=== PATIENT | male | born 1960 | race Caucasian/White ===

== ENCOUNTER → 2023-12-06 09:12 | Outpatient (REF) | payer BC, SELFPAY | LOC: RCS 09:12 | PROVIDERS: ATTENDING PHYSICIAN Internal Medicine Cardiovascular Disease; FAMILY PHYSICIAN Internal Medicine | DX: R00.2 Palpitations (principal) | CPT/HCPCS: 93306 ==

== ENCOUNTER → 2024-08-11 07:55 | Outpatient (REF) | payer BC, SELFPAY | LOC: HWRCS 07:55 | PROVIDERS: ATTENDING PHYSICIAN Internal Medicine Cardiovascular Disease; FAMILY PHYSICIAN Internal Medicine | DX: I77.810 Thoracic aortic ectasia (principal) | CPT/HCPCS: 93306 ==

== ENCOUNTER 2025-01-16 18:39 | Inpatient (IN) | payer BC, MEDICARE, SELFPAY ==
[2025-01-16 12:25] VITALS: BP 137/82
--- NOTE | 2025-01-16 13:05 | ED.GENMED ---
History of Present Illness
General
Chief Complaint: Abnormal Lab Value
Time Seen by Provider: 01/16/25 12:45
History of Present Illness
History of Present Illness:
65-year-old male presents to the emergency department for evaluation of abnormal blood work. Had noted several days of dark urine and katelynn colored stools, earlier in the week he saw his primary care physician and had outpatient labs showing
elevated transaminases and total bilirubin. He denies any abdominal pain at this time but does report mild fatigue poor appetite recently. Denies alcohol or tobacco use. No night sweats or weight loss
Review of Systems
Review of Systems
Allergies reviewed?: Yes
All Other Systems: ROS reviewed and negative except as documented in HPI and ROS
Phy Exam
Physical Exam
Physical Exam:
GEN: Well appearing, NAD, WDWN
HEENT: Oral mucosa moist, mild scleral icterus
Cardiac: Regular rate and rhythm, no murmur
Lung: No respiratory distress, no tachypnea
Abdomen: Soft, grossly nontender, no palpable masses
MSK: No gross deformity or injuries
Skin: Good color, no pallor or jaundice, no rashes
Neuro: AO x3, moves all extremities freely
Psych: Calm, cooperative
Course
Orders/Labs/Results
Orders:
Orders
01/16/25 12:54
CT Abd/Pel (IV only)-DH only Urgent
Comment:
Reason For Exam: painless jaundice
01/16/25 13:01
Complete Blood Count/With Diff Urgent
Comprehensive Metabolic Panel Urgent
Direct Bilirubin Urgent
Lipase Urgent
Prothrombin Time Urgent
Abnormal Lab Results
01/16/25
13:01
WBC 3.6 L 10^3/uL
(4.8-10.8)
RBC 3.90 L 10^6/uL
(4.70-6.10)
Hgb 12.6 L g/dL
(13.0-18.0)
Hct 36.0 L %
(39.0-52.0)
MCH 32.3 H pg
(27.0-31.0)
Absolute Lymphs (auto) 0.7 L 10^3/uL
(1.2-3.4)
Lymphocytes % 20.1 L %
(20.5-51.1)
Monocytes % 10.0 H %
(1.7-9.3)
Sodium 133 L mmol/L
(135-145)
BUN 8 L mg/dl
(9-20)
Creatinine 0.6 L mg/dL
(0.7-1.3)
Glucose 103 H mg/dl
(70-99)
Total Bilirubin 3.3 H mg/dl
(0.2-1.3)
Direct Bilirubin 2.3 H mg/dl
(0.0-0.4)
AST 198 H U/L
(17-59)
ALT 434 H U/L
(0-50)
Alkaline Phosphatase 217 H U/L
(38-126)
01/16/25 13:01
01/16/25 13:01
Vital Signs
Initial and Last Documented VS:
Initial Vital Signs
Temp Pulse Resp BP Pulse Ox
98.3 F 79 29 137/82 98
01/16/25 12:25 01/16/25 12:25 01/16/25 12:25 01/16/25 12:25 01/16/25 12:25
Last Documented Vital Signs
Temp Pulse Resp BP Pulse Ox
98.3 F 79 29 137/82 98
01/16/25 12:25 01/16/25 12:25 01/16/25 12:25 01/16/25 12:25 01/16/25 13:06
MDM/Problems Addressed
MDM/Problems Addressed:
Cystic lesion on pancreatic head causing mass effect resulting in the patient's obstructive jaundice, I discussed the case with gastroenterology who recommend admission to the hospital for further workup and endoscopic ultrasound/ERCP on Sunday
*Pulse Oximetry
SaO2: 98
Oxygen Mode of Delivery: Room air
Patient hypoxic: no
*Critical Care Note
Total Time (30-74mins, 75-104mins- exclusive of procedures): Not Applicable
ED Attending Note
-
Portions of this chart may have been created with voice recognition software.� Occasional wrong word or��sound alike� substitutions may have occurred due to the inherent limitations of voice recognition software.
Discharge Plan
Departure
Patient Disposition: Admit
Date of Disposition: 01/16/25
Time of Disposition: 15:40
Admit to: Med/Surg
Presentation/result/management discussed w/ accepting MD/DO: Hospitalist
Discharge Problem:
Pancreatic lesion, Obstructive jaundice
Prescriptions:
No Action
metoprolol succinate [Toprol XL] 25 mg Tablet Extended Release 24 Hr
25 mg PO DAILY
tizanidine 2 mg Tablet
2 mg PO HS
echinacea 400 mg Capsule
400 mg PO DAILY
Metamucil Packet
1 packet PO DAILY
zinc sulfate 25 mg zinc (110 mg) Tablet
25 mg PO DAILY
tamsulosin [Flomax] 0.4 mg Capsule
0.4 mg PO HS
ascorbic acid (vitamin C) [Vitamin C] 250 mg Tablet
250 mg PO DAILY
montelukast [Singulair] 10 mg Tablet
10 mg PO HS
gabapentin 100 mg Capsule
100 mg PO HS
benazepril 10 mg Tablet
10 mg PO DAILY
red yeast rice 600 mg Capsule
600 mg PO DAILY
cholecalciferol (vitamin D3) [Vitamin D3] 25 mcg (1,000 unit) Tablet
25 mcg PO DAILY
magnesium oxide 500 mg Capsule
500 mg PO DAILY
alpha lipoic acid 200 mg Capsule
200 mg PO DAILY
coQ10 (ubiquinol) 100 mg Capsule
100 mg PO DAILY
turmeric 400 mg Capsule
500 mg PO DAILY
Referrals:
Nick Frances MD [Family Provider, Internal Medicine]
Interventions
Interventions:
*Risk Screen - Suicide Last Done: 01/16/25 13:11
*Neglect/Abuse Screening Last Done: 01/16/25 13:11
Discharge Date and Time
Print Language: RUSSIAN
[2025-01-16 13:11] LABS: Hematocrit 36.0 % (39.0-52.0); Hemoglobin 12.6 g/dL (13.0-18.0); Mean Corp Hgb Conc. 35.0 g/dL (33.0-37.0); Mean Corpuscular Volume 92.3 fL (80.0-94.0); Nucleated Red Blood Cells % 0 % (-); Platelet Count 226 10^3/uL (130-400); Red Cell Dist. Width 13.6 % (11.5-14.5)
[2025-01-16 13:23] LABS: INR 1.00; PT 13.5 Sec (11.4-14.6)
[2025-01-16 13:32] LABS: ALT (SGPT) 434 U/L (0-50); AST (SGOT) 198 U/L (17-59); Albumin 4.4 g/dl (3.5-5.0); Alkaline Phosphatase 217 U/L (38-126); Blood Urea Nitrogen 8 mg/dl (9-20); Calcium 9.8 mg/dl (8.4-10.2); Carbon Dioxide 25 mmol/L (22-30); Chloride 104 mmol/L (98-107); Glucose 103 mg/dl (70-99); Lipase 115 U/L (23-300); Potassium 4.2 mmol/L (3.5-5.1); Sodium 133 mmol/L (135-145); Total Protein 7.4 g/dl (6.3-8.2); eGFR > 60.00
--- NOTE | 2025-01-16 15:54 | CON.GI ---
Addendum entered and electronically signed by Yelitza Constantino DO 01/16/25 18:27:
Patient seen and examined independently of the medical equipment technician. I was available throughout the consult. We discussed the history, physical, assessment and plan. I agree with his note with my additions below
Darien is an otherwise healthy active 65-year-old male with no alcohol use, no history of pancreatitis, no family history of pancreatic disease who has never smoked was sent by his PCP for painless jaundice and abnormal labs. Patient's liver enzymes
were normal around the spring with his PCP. Roughly 2 weeks ago he noticed a change in the color of his urine and stools with some mild fatigue, mild change in appetite with roughly 5 pound weight loss so he made an appointment with his PCP who did
blood work yesterday 01/15/2025. Labs are consistent with a mixed hepatocellular cholestatic picture with elevated bilirubin. He has no significant abdominal pain. No GI symptoms. Denies dysphagia, GERD, nausea, vomiting, diarrhea, constipation.
Still moving his bowels at normal frequency they just turned a wider in color.
Labs include total bilirubin 3.3, direct 2.3, AST 198, ALT 434, alkaline phosphatase 217 lipase 115.
Vital signs are afebrile, normotensive
Physical exam shows mild scleral icterus, regular rate and rhythm, abdomen soft nontender no edema
Surgical history no abdominal surgeries. History of right knee replacement
CT abdomen pelvis with IV contrast only to less than 2 cm cyst in the left and right lobe of the liver, no focal hepatic lesions. Moderate intrahepatic biliary ductal dilatation. Common bile duct 1.9 cm with a pancreatic mass measuring 4.8 cm with
mass effect against the common bile duct. No signs of chronic pancreatitis. Unremarkable spleen.
# Painless jaundice with 4.8 cm pancreatic head mass causing mass effect/obstruction against the common bile duct
--Mixed hepatocellular, cholestatic with elevated bilirubin
--Discussed with Dr. Handy, MRI/MRCP
--Okay for diet other than n.p.o. needed for imaging
--N.p.o. after midnight for procedure on Sunday
--No antibiotics needed
--DVT prophylaxis
--Discussed with patient and his in detail
--Reviewed imaging myself
Original Note:
Consultation
-
Date/Time Consultation Requested: 01/16/2025
Date/Time Consultation Performed: 01/16/2025
Requesting Provider: Dakota Courtney
Performing Provider: Yelitza Constantino
Reason for Consultation: Pancreatic Mass, Painless Jaundice
Medical History
Chief Complaint / HPI
Chief Complaint: Painless Jaundice, Fatigue
History of Present Illness:
Darien is a 65year old male with past medical history of essential hypertension, BPH, lumbar radiculopathy, PVCs who presents with 2 weeks of dark urine, pale stools, bilirubin/transaminitis on recent outpatient labs. He reports that he had a history
of elevated LFTs back in March of 2025 after a COVID booster, but it resolved on repeat labs. His physician was watching the LFTs and repeated them at physical to follow up from prior elevation and they were still wnl. However, within the last
two weeks he reports noticing dark urine, pale stools, and a slight increase in fatigue. He has not noticed any fevers, chills, nausea, vomiting, abdominal pain. He does report a sensation of 'fullness' in the RUQ. He has had weight loss of about
50lbs in the past 5-6 years which was intentional, and had about 5lb weight loss in the past two weeks. He reports a comparative decrease in appetite, but no discomfort or abd pain associated with eating. He has no family history of pancreatic
cancer, no history of pancreatitis, quit drinking alcohol 32 years ago and has never smoked or used elicit substances. He does report growing up in [facility] which reportedly has a higher than national average of cancer due to industrial
pollutants. He has never had an EGD, but reports having a colonoscopy in the past.
GI was consulted for pancreatic mass, painless jaundice, hyperbilirubinemia.
Patient was resting in the bed comfortably during interview. Other than fullness in the right upper quadrant he reports no acute complaints at this time. He is not experiencing any abdominal pain, nausea, vomiting.
Past Medical History
Past Medical History: Other (See HPI)
Past Surgical History: Other (Right knee replaced)
Social History
Tobacco: Non-Smoker
Alcohol: Former (Quit 32 years ago)
Drug: None
Personal:
Living: With Family
Family History
Family History: Reviewed & Not Pertinent
Allergies / Home Medications
Allergy/AdvReac Type Severity Reaction Status Date / Time
acetaminophen (From Percocet) Allergy Mild Unknown Verified 01/16/25 12:30
oxycodone (From Percocet) Allergy Mild Unknown Verified 01/16/25 12:30
�Medication �Instructions �Recorded
metoprolol succinate 25 mg 25 mg PO DAILY 01/16/25
tablet,extended release 24 hr
(Toprol XL)
Review of Systems
-
History Source: Patient and Family
All other systems: A 12 pt ROS was Negative except as stated above in HPI
Vital Signs
Temp Pulse Resp BP Pulse Ox
98.3 F 79 29 137/82 98
01/16/25 12:25 01/16/25 12:25 01/16/25 12:25 01/16/25 12:25 01/16/25 13:06
Physical Exam
Exam
General: Well Developed, Well Nourished, No Apparent Distress and Comfortable
HEENT: Normocephalic, Anicteric and Moist Mucous Membranes
Respiratory: Clear and Non Labored Respirations; Negative Wheezes, Rales or Rhonchi
Cardiac: S1/S2 and Regular Rhythm; Negative Murmur or Rub
Breast: N/A
GI: Soft, Non Tender, Non Distended and Normal Bowel Sounds
Musculoskeletal: No Clubbing, No Cyanosis and No Edema
Skin: Warm and Dry
Neuro: AO x 3
Psych: Calm
Results
WBC 3.6 10^3/uL (4.8-10.8) L 09/05/25 13:01
Hgb 12.6 g/dL (13.0-18.0) L 01/16/25 13:01
Hct 36.0 % (39.0-52.0) L 01/16/25 13:01
MCV 92.3 fL (80.0-94.0) 01/16/25 13:01
Plt Count 226 10^3/uL (130-400) 01/16/25 13:01
Absolute Neuts (auto) 2.4 10^3/uL (1.4-6.5) 01/16/25 13:01
PT 13.5 Sec (11.4-14.6) 01/16/25 13:01
INR 1.00 01/16/25 13:01
Sodium 133 mmol/L (135-145) L 01/16/25 13:01
Potassium 4.2 mmol/L (3.5-5.1) 01/16/25 13:01
Chloride 104 mmol/L (98-107) 01/16/25 13:01
Carbon Dioxide 25 mmol/L (22-30) 01/16/25 13:01
BUN 8 mg/dl (9-20) L 01/16/25 13:01
Creatinine 0.6 mg/dL (0.7-1.3) L 01/16/25 13:01
Calcium 9.8 mg/dl (8.4-10.2) 01/16/25 13:01
Total Bilirubin 3.3 mg/dl (0.2-1.3) H 01/16/25 13:01
AST 198 U/L (17-59) H 01/16/25 13:01
ALT 434 U/L (0-50) H 01/16/25 13:01
Alkaline Phosphatase 217 U/L (38-126) H 01/16/25 13:01
Lipase 115 U/L (23-300) 01/16/25 13:01
Diagnostic Image Results:
Prior GI Procedures:
EGD:
Colonoscopy:
Assessment / Plan
-
Darien is a 65 year old male with past medical history of essential hypertension, BPH, lumbar radiculopathy, PVCs who presents with 2 weeks of dark urine, pale stools, bilirubin/transaminitis on recent outpatient labs. He reports that he had a
history of elevated LFTs back in March of 2024 after a COVID booster, but it resolved on repeat labs. His physician was watching the LFTs and repeated them at physical to follow up from prior elevation and they were still wnl. However, within the
last two weeks he reports noticing dark urine, pale stools, and a slight increase in fatigue. He has not noticed any fevers, chills, nausea, vomiting, abdominal pain. He does report a sensation of 'fullness' in the RUQ. He has had weight loss of
about 50lbs in the past 5-6 years which was intentional, and had about 5lb weight loss in the past two weeks. He reports a comparative decrease in appetite, but no discomfort or abd pain associated with eating. He has no family history of pancreatic
cancer, no history of pancreatitis, quit drinking alcohol 32 years ago and has never smoked or used elicit substances. He does report growing up in [facility] which reportedly has a higher than national average of cancer due to industrial
pollutants. He has never had an EGD, but reports having a colonoscopy in the past.
#4.8cm pancreatic mass on CT imaging
#Painless Jaundice
#Hyperbilirubinemia
#Transaminitis
Painless jaundice with associated fatigue, weight less, pale stools and pancreatic mass on imaging. Differentials include pancreatic pseudocyst vs. Serous cystadenoma vs. intraductal papillary mucinous neoplasm vs. mucinous cystic neoplasm vs. other
W/o history of chronic pancreatitis and h/o pollutant exposure there is greater concern for malignant cystic lesions
Will order MR Abd/pelvis w/ & w/o contrast to better visualize mass and plan for EUS with bx/aspiration of cyst on Sunday.
Plan to send fluid analysis for amylase, CEA, cytology and likely genetic testing for KRAS/TP53
Npo after midnight tonight for hopeful MRI tomorrow, then low residue until midnight Sunday for hopeful procedure Sunday morning
Would use chemical dvt ppx as this patient is high risk with potential malignancy
40mg IV PPI qd
-
-
Thank you for consultation and allowing me to participate in the patient's care. Please call the ultrasound sonographer GI physician during the after hours with any questions or concerns.
--- NOTE | 2025-01-16 18:33 | HPS.HSE ---
Addendum entered and electronically signed by Wu Mcmahon MD, Resident 01/20/25 15:09:
Home meds and allergies added
Allergies
Allergy/AdvReac Type Severity Reaction Status Date / Time
acetaminophen (From Percocet) Allergy Mild Unknown Verified 01/16/25 12:30
oxycodone (From Percocet) Allergy Mild Unknown Verified 01/16/25 12:30
Home Medications
alpha lipoic acid 200 mg capsule 200 mg PO DAILY 01/16/25
ascorbic acid (vitamin C) 250 mg tablet (Vitamin C) 250 mg PO DAILY 01/16/25
benazepril 10 mg tablet 10 mg PO DAILY 01/16/25
cholecalciferol (vitamin D3) 25 mcg (1,000 unit) tablet (Vitamin D3) 25 mcg PO DAILY 01/16/25
coQ10 (ubiquinol) 100 mg capsule 100 mg PO DAILY 01/16/25
echinacea 400 mg capsule 400 mg PO DAILY 01/16/25
gabapentin 100 mg capsule 100 mg PO HS 01/16/25
magnesium oxide 500 mg capsule 500 mg PO DAILY 01/16/25
metoprolol succinate 25 mg tablet,extended release 24 hr (Toprol XL) 25 mg PO DAILY 01/16/25
montelukast 10 mg tablet (Singulair) 10 mg PO HS 01/16/25
psyllium 1 packet PO DAILY 01/16/25
red yeast rice 600 mg capsule 600 mg PO DAILY 01/16/25
tamsulosin 0.4 mg capsule (Flomax) 0.4 mg PO HS 01/16/25
tizanidine 2 mg tablet 2 mg PO HS 01/16/25
turmeric 400 mg capsule 500 mg PO DAILY 01/16/25
zinc sulfate 25 mg zinc (110 mg) tablet 25 mg PO DAILY 01/16/25
pantoprazole 40 mg tablet,delayed release 40 mg PO DAILY #30 tabs 01/20/25
Original Note:
Family Physician
-
Family Physician: Nick Frances
Chief Complaint
-
Abnormal labs
History of Present Illness
A 65 y/o male was sent to ED on 01/16 from his PCP for having abnormal lab results. He has elevated LFT enzymes. He has RUQ fullness and jaundice. He has mild fatigue and decreased appetite. He reports noticing dark urine and pale stool 2 weeks ago.
He was able to see his PCP yesterday and got his lab results today. Currently he reports having yellow urine and brown stool. He denies nausea, vomiting, abdominal pain. He mentions a year ago after having Covid vaccine he developed the same symtoms
dark urine, pale stools. Also, he had elevated LFT's. It improved itself. He denies smoking, drinking alcohol. Last couple weeks he lost 5 lbs.
Medical History
Past Medical History
Past Medical History: Reports Arrhythmia, HTN and Hypercholesterolemia
Additional Past Medical History:
Premature Atrial Contraction
BPH
Compressed disc related neuropathy
Past Surgical History: Reports Orthopedic and Urological
Social History
Tobacco: Non-smoker
Alcohol: None
Drug: None
Personal:
Living: With Family
Employment: Employed
Family History
Family History: Not pertinent
Allergies / Home Medications
Allergies reflects when Allergies were last updated in [facility].
Home Medications with original date entered in [facility]
Allergy/Medication List:
Percocet
Review of Systems
-
History Source: Patient
Constitutional: Reports Fatigue
EENT: Reports No Symptoms
Respiratory: Reports No Symptoms
Cardiac: Reports No Symptoms
Abdomen/GI: Reports Other (abdominal fullness)
: Reports No Symptoms
Musculoskeletal: Reports No Symptoms
Skin: Reports No Symptoms
Neurological: Reports No Symptoms
Endocrine: Reports No Symptoms
Hematologic/Lymphatic: Reports No Symptoms
Psych: Reports Calm
Physical Exam
Vital Signs
Vital Signs
Temp Pulse Resp BP Pulse Ox
98.3 F 79 29 137/82 98
01/16/25 12:25 01/16/25 12:25 01/16/25 12:25 01/16/25 12:25 01/16/25 13:06
Physical Exam
General: Well Developed, Well Nourished, No Apparent Distress, Comfortable and Conversant
HEENT: NormoCephalic and Other (icteric)
Respiratory: Clear
Cardiac: S1/S2 and Regular Rhythm
Breast: Deferred by me
GI: Soft, Non Tender, Non Distended and Normal Bowel Sounds
Rectal: Deferred by Provider
Genito-urinary: Deferred by me
Musculoskeletal: No Clubbing, No Cyanosis and No Edema
Skin: Warm and Jaundice
Neuro: AO x 3 and No Motor Deficits
Psych: Calm
Laboratory Results
-
01/16/25 13:01
01/16/25 13:01
Laboratory Results
PT 13.5 Sec (11.4-14.6) 01/16/25 13:01
INR 1.00 01/16/25 13:01
Total Bilirubin 3.3 mg/dl (0.2-1.3) H 01/16/25 13:01
AST 198 U/L (17-59) H 01/16/25 13:01
ALT 434 U/L (0-50) H 01/16/25 13:01
Alkaline Phosphatase 217 U/L (38-126) H 01/16/25 13:01
Lipase 115 U/L (23-300) 01/16/25 13:01
Impression/Plan
-
IMPRESSION:A 65 y/o male was sent to ED on 01/16 from his PCP for having abnormal lab results. He has elevated LFT enzymes. He has RUQ fullness and jaundice. He has mild fatigue and decreased appetite. He reports noticing dark urine and pale stool 2
weeks ago. He was able to see his PCP yesterday and got his lab results today. Currently he reports having yellow urine and brown stool. He denies nausea, vomiting, abdominal pain
PLAN:
#Pancreatic mass
#Painless biliary obstruction
Consult GI
CT imaging:
- Unilocular cystic lesion at the pancreatic head measuring up to 4.8 cm in diameter. Pseudocyst and mucinous neoplasm are differential considerations.
- Pancreatic cystic lesion exerts mass effect against the common duct with associated intrahepatic and extrahepatic biliary dilation and mild gallbladder dilation.
MRI w and w/o contrast tomorrow
-Low residue diet
-NPO after midnight
Depending to MRI results ERCP with endoscopic ultrasound on sunday?
-NPO
#PAC
-continue metoprolol 25mg PO
#Hypertension
-Continue Benazepril
-Monitor Vitals
#BPH
-Continue tamsulosin
#Lumbar radiculopathy secondary to intervertebral disc herniation
-Continue Gabapentin
DVT ppx: Lovenox
Full Code
--- NOTE | 2025-01-16 18:37 | W.PN.UPDATE ---
Update Note
Progress Note Update
65-year-old male with aortic root dilation, PACs/PVCs, primary hypertension, dyslipidemia, lumbar radiculopathy who is presenting to the ED today due to abnormal outpatient lab work. Symptomatically, patient has noted dark urine and katelnyn colored
stools for several days and had a visit with his PCP earlier this week at which labs were ordered. LFTs came back with elevated transaminases and T. bili. Patient was told to come to the ED for further assessment. Denies any abdomen pain, alcohol
or tobacco use, night sweats, weight loss, melena/GI bleeding, Fevers or chills. Does state he has had some mild fatigue and poor appetite recently. AFVSS on arrival. Labs with WBC 3.6, hemoglobin 12.6, sodium 133, T. bili 3.3, D bili 2.3, AST
198, ALT 434, ALP 217. Lipase negative. CT A/P with unilocular cystic lesion of the pancreatic head measuring 4.8 cm with mass effect against the CBD associated with intrahepatic and extrahepatic biliary dilation.
AO x 4, NAD. Cardiopulmonary exam benign. NTND abdomen with NBS, no palpable mass. No edema, palpable pulses, well-perfused. Skin warm and dry, no jaundice, mild scleral icterus. No tremor, no focal deficits
Pancreatic head mass with biliary obstruction. Differentials include adenocarcinoma, IPMN. Pancreatic pseudocyst or abscess less likely. CT with 4.8 cm mass at pancreatic head with CBD compression. GI consulted, planning for ERCP/EUS with biopsy
on Sunday. Will order MRI abdomen with and without contrast to better assess pancreatic mass. Will trend LFTs in the interim, avoid hepatotoxins. Continue with diet through Sunday evening, n.p.o. after midnight Sunday.
Low residue diet, n.p.o. after midnight in preparation of MRI tomorrow
SQ Lovenox, high risk of pancreatic cancer present
Full code
I will be admitting Darien Butler to [facility]. He is at high risk for worsening morbidity due to biliary obstruction and will require intensive monitoring of his LFTs and diagnostic intervention by gastroenterology for tissue diagnosis of
pancreatic mass while hospitalized. I discussed this case with the ED attending and photonic laboratory technician. I reviewed the case with the resident and agree with all documentation unless otherwise specified.
Please see resident H&P for more detail when available
[2025-01-16 19:17] LABS: Iron 149 ug/dl (49-181)
[2025-01-16 19:26] LABS: Total Iron Binding Capacity 319 ug/dl (261-462)
[2025-01-16 19:54] LABS: Ferritin 318.0 ng/ml (17.9-464.0)
[2025-01-16 20:25] LABS: Folate 12.4 ng/ml (2.76-20); Vitamin B12 839 pg/ml (239-931)
[2025-01-16 20:43] VITALS: BP 142/72; BMI 26.3
[2025-01-16] MEDS: METAMUCIL, KONSYL 1 PACKET PO (21:05)
[2025-01-16] MEDS: LOVENOX 40 MG SC (21:07)
[2025-01-16] MEDS: FLOMAX 0.4 MG PO (21:08)
[2025-01-16] MEDS: SINGULAIR 10 MG PO (21:09)
[2025-01-16] MEDS: ZANAFLEX 2 MG PO (21:09)
[2025-01-16] MEDS: NEURONTIN 100 MG PO (21:09)
--- NOTE | 2025-01-16 21:15 | PTCARENOTE ---
Pt received from ED via wheelchair at 2039. Pt pleasant, AAOx3, VSS, and able to ambulate into room without assistance. Pt absent of pain at this time. Pt receptive to room and call max. Pt bed in lowest position and call max within reach. Pt
educated on importance of call max usage, pt relays understanding and cooperation. Will continue with current plan of care.
[2025-01-16 23:19] VITALS: BP 104/59
[2025-01-17 07:00] VITALS: BP 134/74
[2025-01-17 08:30] LABS: Hematocrit 37.0 % (39.0-52.0); Hemoglobin 13.3 g/dL (13.0-18.0); Mean Corp Hgb Conc. 35.9 g/dL (33.0-37.0); Mean Corpuscular Volume 91.6 fL (80.0-94.0); Platelet Count 259 10^3/uL (130-400); Red Cell Dist. Width 13.7 % (11.5-14.5)
[2025-01-17 09:09] LABS: ALT (SGPT) 452 U/L (0-50); AST (SGOT) 198 U/L (17-59); Albumin 4.6 g/dl (3.5-5.0); Alkaline Phosphatase 207 U/L (38-126); Blood Urea Nitrogen 8 mg/dl (9-20); Calcium 10.2 mg/dl (8.4-10.2); Carbon Dioxide 27 mmol/L (22-30); Chloride 103 mmol/L (98-107); Estimated Creatinine Clearance 106 ml/min; Glucose 107 mg/dl (70-99); Potassium 4.7 mmol/L (3.5-5.1); Sodium 138 mmol/L (135-145); Total Protein 7.8 g/dl (6.3-8.2); eGFR > 60.00
[2025-01-17] MEDS: VITAMIN D3 (cholecalciferol) 25 MCG PO (10:17)
[2025-01-17] MEDS: ZESTRIL 10 MG PO (10:17)
[2025-01-17] MEDS: TOPROL XL 25 MG PO (10:17)
--- NOTE | 2025-01-17 11:50 | W.PN.HOSP.TC ---
Today's Communication/Plan
-
Continue monitoring blood pressure
Monitor for any worsening abdominal symptoms
Trend CMP
Low residue diet
Await any other GI recommendations
Assessment / Plan
Assessment / Plan
Assessment:
65-year-old male with a past medical history of aortic root dilatation, PACs/PVCs, primary hypertension, dyslipidemia, lumbar radiculopathy presented to the ED due to abnormal outpatient lab work showing increased bilirubin levels as well as
elevated transaminases. He was told by his primary to come to the ED for further management. He has been having some dark urine and katelynn colored stools for the past several days however the urine has returned back to normal color. In the ED he
denied any abdominal pain, recent weight loss, alcohol tobacco use. CT abdomen pelvis showed unilocular cystic lesion of the pancreatic head measuring 4.8 cm causing CBD dilation. Patient was admitted to the hospital for further management and
possible GI procedures.
Plan:
# Pancreatic head mass with biliary obstruction
- GI consulted, input appreciated
- Continues to have elevated bilirubin, elevated transaminases. Remains asymptomatic however with some mild pressure in the right upper quadrant of his abdomen
- MRI abdomen with and without IV contrast today: 4.8 cm unilocular cystic lesion in the head of the pancreas containing trace layering proteinaceous material. No suspicious enhancement. Upstream intrahepatic and extrahepatic bile duct dilatation.
Limited visualization of the mid to distal common bile duct, likely secondary to extrinsic mass effect from the cystic mass. The differential again includes a pancreatic pseudocyst or mucinous neoplasm. A choledochal cyst would be an alternative
consideration.
- Will resume low residue diet following his MRI
- N.p.o. after midnight on Sunday for possible procedure on Sunday
#PAC
-continue metoprolol 25mg PO
#Hypertension
-Continue Benazepril
-Monitor Vitals
#BPH
-Continue tamsulosin
#Lumbar radiculopathy secondary to intervertebral disc herniation
-Continue Gabapentin
DVT ppx: Lovenox
Full Code
Anticipated Discharge: 24 - 48 hours
Subjective/Interval History
-
Date of Service: January 17, 2025
Patient seen earlier this morning, before his MRI. Said that he has no change from before, reports no abdominal pain, changes in urine today. Says that he does not know why everyone keeps saying he has jaundice, he does not notice any change in
color. Overall just awaiting the results of the scan
Objective Data
-
Labs:
Laboratory Results
01/17/25
07:55
WBC 4.3 L
Hgb 13.3
Hct 37.0 L
Plt Count 259
Sodium 138
Potassium 4.7
Chloride 103
Carbon Dioxide 27
BUN 8 L
Creatinine 0.7
Glucose 107 H
Calcium 10.2
Total Bilirubin 3.5 H
AST 198 H
ALT 452 H
Alkaline Phosphatase 207 H
Vital Signs:
Vital Signs
Temp Pulse Resp BP Pulse Ox
97.6 F 60 18 134/74 99
01/17/25 07:00 01/17/25 07:00 01/17/25 07:00 01/17/25 07:00 01/17/25 07:00
Review of Systems
-
History Source: Patient
Constitutional: Reports No Symptoms
EENT: Reports No Symptoms Reported
Respiratory: Reports No Symptoms
Cardiac: Reports No Symptoms
Abdomen/GI: Reports No Symptoms
Genitourinary: Reports No Symptoms
Musculoskeletal: Reports No Symptoms
Skin: Reports No Symptoms
Neuro: Reports No Symptoms
Endocrine: Reports No Symptoms
Hematologic / Lymphatic: Reports No Symptoms
Allergy / Immunology: Reports No Symptoms
Physical Exam
-
General: Well Developed, Well Nourished, No Apparent Distress and Comfortable
HEENT: Normocephalic, Atraumatic and Other (Mild yellowing of the sclera)
Respiratory: Clear to Auscultation and Non Labored Respirations
Cardiac: Regular Rhythm and S1/S2
GI: Soft, Nontender and Nondistended
Musculoskeletal: No Clubbing, No Cyanosis and No Edema
Skin: Warm and Dry
Neuro: Awake, Alert, Oriented and AO x 3
Psych: Calm
Data Reviewed
-
MRI: Report Reviewed by me, Discussed with Physician and Discussed with Patient
Labs: Labs Reviewed by me, Discussed with Physician and Discussed with Patient
--- NOTE | 2025-01-17 14:56 | W.PN.GI.CBS2 ---
Today's Communication / Plan
-
-- N.p.o. after midnight Sunday night
Assessment / Plan
-
Darien is a 65 year old male with past medical history of essential hypertension, BPH, lumbar radiculopathy, PVCs who presents with 2 weeks of dark urine, pale stools, bilirubin/transaminitis on recent outpatient labs. He reports that he had a
history of elevated LFTs back in March of 2024 after a COVID booster, but it resolved on repeat labs. His physician was watching the LFTs and repeated them at physical to follow up from prior elevation and they were still wnl. However, within the
last two weeks he reports noticing dark urine, pale stools, and a slight increase in fatigue. He has not noticed any fevers, chills, nausea, vomiting, abdominal pain. He does report a sensation of 'fullness' in the RUQ. He has had weight loss of
about 50lbs in the past 5-6 years which was intentional, and had about 5lb weight loss in the past two weeks. He reports a comparative decrease in appetite, but no discomfort or abd pain associated with eating. He has no family history of pancreatic
cancer, no history of pancreatitis, quit drinking alcohol 32 years ago and has never smoked or used elicit substances. He does report growing up in [facility] which reportedly has a higher than national average of cancer due to industrial
pollutants. He has never had an EGD, but reports having a colonoscopy in the past.
#4.8cm pancreatic mass on CT imaging
#Painless Jaundice
01/17/2025, MRI -unilocular cystic lesion measuring 4.8 cm in the head of the pancreas with hyperintense pernicious material within the cyst, upstream CBD dilation measuring 1.9 cm with moderate intrahepatic ductal dilatation. Normal pancreatic duct.
Small cyst in the liver, no significant lymphadenopathy, all vasculature surrounding the pancreas are patent and not involved
Painless jaundice with associated fatigue, weight lo fine ss, pale stools and pancreatic mass on imaging. Differentials include pancreatic pseudocyst vs. Serous cystadenoma vs. intraductal papillary mucinous neoplasm vs. mucinous cystic neoplasm
vs. other
No prior history of chronic pancreatitis, non-smoker
plan for EUS plus or minus ERCP with bx/aspiration of lesion on Sunday.
Plan to send fluid analysis for amylase, CEA, cytology and likely genetic testing for KRAS/TP53
Npo after midnight tonight Sunday
Hold DVT prophylaxis on Sunday
Once daily PPI is fine
discussed details with patient and his
Subjective
Subjective
Date of Service: January 17, 2025
No significant complaints
Objective
Data Reviewed
Laboratory Data:
Laboratory Results
01/17/25 07:55
01/17/25 07:55
Laboratory Results
PT 13.5 Sec (11.4-14.6) 01/16/25 13:01
INR 1.00 01/16/25 13:01
Total Bilirubin 3.5 mg/dl (0.2-1.3) H 01/17/25 07:55
AST 198 U/L (17-59) H 01/17/25 07:55
ALT 452 U/L (0-50) H 01/17/25 07:55
Alkaline Phosphatase 207 U/L (38-126) H 01/17/25 07:55
Lipase 115 U/L (23-300) 01/16/25 13:01
Vital Signs and I&O:
Vital Signs
Temp Pulse Resp BP Pulse Ox
97.6 F 60 18 134/74 99
01/17/25 07:00 01/17/25 07:00 01/17/25 07:00 01/17/25 07:00 01/17/25 07:00
Physical Exam
Physical Exam
HEENT: Anicteric (Mildly icteric)
GI: Soft, Non Distended and Non Tender
Extremities: No Edema
Neuro: Non Focal
[2025-01-17 15:20] VITALS: BP 130/68
[2025-01-17] MEDS: LOVENOX 40 MG SC (17:21)
--- NOTE | 2025-01-17 18:54 | PTCARENOTE ---
covered pt from 3p to 7p. denied pain. call max in reach.
[2025-01-17] MEDS: SINGULAIR 10 MG PO (21:21)
[2025-01-17] MEDS: FLOMAX 0.4 MG PO (21:21)
[2025-01-17] MEDS: ZANAFLEX 2 MG PO (21:21)
[2025-01-17] MEDS: METAMUCIL, KONSYL 1 PACKET PO (21:21)
[2025-01-17] MEDS: NEURONTIN 100 MG PO (21:21)
[2025-01-17 23:11] VITALS: BP 101/60
[2025-01-18 05:54] LABS: Hematocrit 36.2 % (39.0-52.0); Hemoglobin 12.4 g/dL (13.0-18.0); Mean Corp Hgb Conc. 34.3 g/dL (33.0-37.0); Mean Corpuscular Volume 94.5 fL (80.0-94.0); Platelet Count 234 10^3/uL (130-400); Red Cell Dist. Width 13.7 % (11.5-14.5)
[2025-01-18 06:28] LABS: ALT (SGPT) 370 U/L (0-50); AST (SGOT) 157 U/L (17-59); Albumin 4.1 g/dl (3.5-5.0); Alkaline Phosphatase 168 U/L (38-126); Blood Urea Nitrogen 13 mg/dl (9-20); Calcium 10.0 mg/dl (8.4-10.2); Carbon Dioxide 28 mmol/L (22-30); Chloride 104 mmol/L (98-107); Estimated Creatinine Clearance 93 ml/min; Glucose 104 mg/dl (70-99); Potassium 4.9 mmol/L (3.5-5.1); Sodium 137 mmol/L (135-145); Total Protein 7.0 g/dl (6.3-8.2); eGFR > 60.00
[2025-01-18 07:05] VITALS: BP 125/66
[2025-01-18] MEDS: TOPROL XL 25 MG PO (08:24)
[2025-01-18] MEDS: VITAMIN D3 (cholecalciferol) 25 MCG PO (08:25)
[2025-01-18] MEDS: ZESTRIL 10 MG PO (08:25)
--- NOTE | 2025-01-18 09:09 | W.PN.HOSP.TC ---
Today's Communication/Plan
-
Continue low residue diet, n.p.o. after midnight
Monitor for any worsening abdominal symptoms
Assessment / Plan
Assessment / Plan
Assessment:
65-year-old male with a past medical history of aortic root dilatation, PACs/PVCs, primary hypertension, dyslipidemia, lumbar radiculopathy presented to the ED due to abnormal outpatient lab work showing increased bilirubin levels as well as
elevated transaminases. He was told by his primary to come to the ED for further management. He has been having some dark urine and katelynn colored stools for the past several days however the urine has returned back to normal color. In the ED he
denied any abdominal pain, recent weight loss, alcohol tobacco use. CT abdomen pelvis showed unilocular cystic lesion of the pancreatic head measuring 4.8 cm causing CBD dilation. Patient was admitted to the hospital for further management and
possible GI procedures.
Plan:
# Pancreatic head mass with biliary obstruction
- CT with 4.8 cm mass at pancreatic head with CBD compression
- GI consulted, input appreciated
- Continues to have elevated bilirubin, elevated transaminases. Remains asymptomatic however with some mild pressure in the right upper quadrant of his abdomen
- MRI abdomen with and without IV contrast today: 4.8 cm unilocular cystic lesion in the head of the pancreas containing trace layering proteinaceous material. No suspicious enhancement. Upstream intrahepatic and extrahepatic bile duct dilatation.
Limited visualization of the mid to distal common bile duct, likely secondary to extrinsic mass effect from the cystic mass. The differential again includes a pancreatic pseudocyst or mucinous neoplasm. A choledochal cyst would be an alternative
consideration.
- Patient scheduled for EUS plus or minus ERCP with biopsy/aspiration of lesion tomorrow
- N.p.o. after midnight, continue low residue diet until then
#PAC
-continue metoprolol 25mg PO
#Hypertension
-Continue Benazepril
-Monitor Vitals
#BPH
-Continue tamsulosin
#Lumbar radiculopathy secondary to intervertebral disc herniation
-Continue Gabapentin
DVT ppx: Lovenox
Full Code
Anticipated Discharge: 24 - 48 hours
Subjective/Interval History
-
Date of Service: January 18, 2025
Patient seen today, resting comfortably on his chair. Reports no changes from yesterday. Says he has no symptoms including no abdominal pain, no nausea, vomiting. Reports he is hopeful regarding the findings that he saw from the MRI, and hoping
for good news from the procedure tomorrow.
Objective Data
-
Labs:
Laboratory Results
01/18/25
05:32
WBC 4.5 L
Hgb 12.4 L
Hct 36.2 L
Plt Count 234
Sodium 137
Potassium 4.9
Chloride 104
Carbon Dioxide 28
BUN 13
Creatinine 0.8
Glucose 104 H
Calcium 10.0
Total Bilirubin 3.2 H
AST 157 H
ALT 370 H
Alkaline Phosphatase 168 H
Vital Signs:
Vital Signs
Temp Pulse Resp BP Pulse Ox
97.9 F 67 18 125/66 99
01/18/25 07:05 01/18/25 07:05 01/18/25 07:05 01/18/25 07:05 01/18/25 07:05
I&O
01/17/25 01/18/25 01/19/25
06:59 06:59 06:59
Intake Total 1560 / 1560
Balance 1560 / 1560
Review of Systems
-
History Source: Patient
Constitutional: Reports No Symptoms
EENT: Reports No Symptoms Reported
Respiratory: Reports No Symptoms
Cardiac: Reports No Symptoms
Abdomen/GI: Reports No Symptoms
Genitourinary: Reports No Symptoms
Musculoskeletal: Reports No Symptoms
Skin: Reports No Symptoms
Neuro: Reports No Symptoms
Endocrine: Reports No Symptoms
Hematologic / Lymphatic: Reports No Symptoms
Allergy / Immunology: Reports No Symptoms
Physical Exam
-
General: Well Developed, Well Nourished, No Apparent Distress and Comfortable
HEENT: Normocephalic, Atraumatic and Other (Mild yellowing of the sclera)
Respiratory: Clear to Auscultation and Non Labored Respirations
Cardiac: Regular Rhythm and S1/S2
GI: Soft, Nontender and Nondistended
Musculoskeletal: No Clubbing, No Cyanosis and No Edema
Skin: Warm and Dry
Neuro: Awake, Alert, Oriented and AO x 3
Psych: Calm
Data Reviewed
-
MRI: Report Reviewed by me, Discussed with Physician and Discussed with Patient
Labs: Labs Reviewed by me, Discussed with Physician and Discussed with Patient
--- NOTE | 2025-01-18 10:51 | CM ---
CM reviewed chart. Pt from home, Iw/AMB and ADLs. No skilled needs noted at this time.
Should pts needs changed please placed CM/SW consult.
CM/SW will continue to follow to ensure a safe and timely dc.
[2025-01-18 15:18] VITALS: BP 110/63
--- NOTE | 2025-01-18 15:35 | W.PN.GI.CBS2 ---
Today's Communication / Plan
-
N.p.o. after midnight for EUS/ERCP tomorrow
Assessment / Plan
-
Darien is a 65 year old male with past medical history of essential hypertension, BPH, lumbar radiculopathy, PVCs who presents with 2 weeks of dark urine, pale stools, bilirubin/transaminitis on recent outpatient labs. He reports that he had a
history of elevated LFTs back in March of 2024 after a COVID booster, but it resolved on repeat labs. His physician was watching the LFTs and repeated them at physical to follow up from prior elevation and they were still wnl. However, within the
last two weeks he reports noticing dark urine, pale stools, and a slight increase in fatigue. He has not noticed any fevers, chills, nausea, vomiting, abdominal pain. He does report a sensation of 'fullness' in the RUQ. He has had weight loss of
about 50lbs in the past 5-6 years which was intentional, and had about 5lb weight loss in the past two weeks. He reports a comparative decrease in appetite, but no discomfort or abd pain associated with eating. He has no family history of pancreatic
cancer, no history of pancreatitis, quit drinking alcohol 32 years ago and has never smoked or used elicit substances. He does report growing up in [facility] which reportedly has a higher than national average of cancer due to industrial
pollutants. He has never had an EGD, but reports having a colonoscopy in the past.
#4.8cm pancreatic mass on CT imaging
#Painless Jaundice
01/17/2025, MRI -unilocular cystic lesion measuring 4.8 cm in the head of the pancreas with hyperintense pernicious material within the cyst, upstream CBD dilation measuring 1.9 cm with moderate intrahepatic ductal dilatation. Normal pancreatic duct.
Small cyst in the liver, no significant lymphadenopathy, all vasculature surrounding the pancreas are patent and not involved
Painless jaundice with associated fatigue, weight lo fine ss, pale stools and pancreatic mass on imaging. Differentials include pancreatic pseudocyst vs. Serous cystadenoma vs. intraductal papillary mucinous neoplasm vs. mucinous cystic neoplasm
vs. other
No prior history of chronic pancreatitis, non-smoker
plan for EUS plus or minus ERCP with bx/aspiration of lesion on Sunday.
Plan to send fluid analysis for amylase, CEA, cytology and likely genetic testing for KRAS/TP53
Npo after midnight tonight Sunday
Hold DVT prophylaxis on Sunday
Once daily PPI is fine
discussed details with patient and his
Subjective
Subjective
Date of Service: January 18, 2025
No complaints
Objective
Data Reviewed
Laboratory Data:
Laboratory Results
01/18/25 05:32
01/18/25 05:32
Laboratory Results
PT 13.5 Sec (11.4-14.6) 01/16/25 13:01
INR 1.00 01/16/25 13:01
Total Bilirubin 3.2 mg/dl (0.2-1.3) H 01/18/25 05:32
AST 157 U/L (17-59) H 01/18/25 05:32
ALT 370 U/L (0-50) H 01/18/25 05:32
Alkaline Phosphatase 168 U/L (38-126) H 01/18/25 05:32
Lipase 115 U/L (23-300) 01/16/25 13:01
Vital Signs and I&O:
Vital Signs
Temp Pulse Resp BP Pulse Ox
97.9 F 66 16 110/63 100
01/18/25 15:18 01/18/25 15:18 01/18/25 15:18 01/18/25 15:18 01/18/25 15:18
I&O
01/17/25 01/18/25 01/19/25
06:59 06:59 06:59
Intake Total 1560 / 1560
Balance 1560 / 1560
Physical Exam
Physical Exam
HEENT: Anicteric (Icteric)
Cardiology: Normal Sinus Rhythm
GI: Soft, Non Distended and Non Tender
Extremities: No Edema
Neuro: Non Focal
[2025-01-18] MEDS: LOVENOX 40 MG SC (17:14)
[2025-01-18] MEDS: MIRALAX 17 GRAMS PO (17:26)
[2025-01-18] MEDS: SINGULAIR 10 MG PO (20:34)
[2025-01-18] MEDS: SENOKOT-S 1 TABLET PO (20:34)
[2025-01-18] MEDS: FLOMAX 0.4 MG PO (20:34)
[2025-01-18] MEDS: METAMUCIL, KONSYL 1 PACKET PO (20:34)
[2025-01-18] MEDS: NEURONTIN 100 MG PO (20:34)
[2025-01-18] MEDS: ZANAFLEX 2 MG PO (20:38)
[2025-01-18 23:21] VITALS: BP 128/73
[2025-01-19 07:09] LABS: Hematocrit 34.3 % (39.0-52.0); Hemoglobin 12.2 g/dL (13.0-18.0); Mean Corp Hgb Conc. 35.6 g/dL (33.0-37.0); Mean Corpuscular Volume 93.7 fL (80.0-94.0); Platelet Count 222 10^3/uL (130-400); Red Cell Dist. Width 13.2 % (11.5-14.5)
--- NOTE | 2025-01-19 07:17 | W.PN.HOSP.TC ---
Addendum entered and electronically signed by Domenic Rojo MD 01/19/25 16:58:
Pancreatic head mass with biliary obstruction
Plan for ERCP with EUS/biopsy on Sunday
Maintain n.p.o. until procedure
Will trend LFTs and avoid hepatotoxins
Original Note:
Today's Communication/Plan
-
NPO
Today EUS +/- ERCP with bx/ aspiration of lesion
Monitor after Procedure for complications
Assessment / Plan
Assessment / Plan
Assessment:
65-year-old male with a past medical history of aortic root dilatation, PACs/PVCs, primary hypertension, dyslipidemia, lumbar radiculopathy presented to the ED due to abnormal outpatient lab work showing increased bilirubin levels as well as
elevated transaminases. He was told by his primary to come to the ED for further management. He has been having some dark urine and katelynn colored stools for the past several days however the urine has returned back to normal color. In the ED he
denied any abdominal pain, recent weight loss, alcohol tobacco use. CT abdomen pelvis showed unilocular cystic lesion of the pancreatic head measuring 4.8 cm causing CBD dilation. Patient was admitted to the hospital for further management and
possible GI procedures.
Plan:
# Pancreatic head mass with biliary obstruction
- CT with 4.8 cm mass at pancreatic head with CBD compression
- GI consulted, input appreciated
- Continues to have elevated bilirubin, elevated transaminases. Remains asymptomatic however with some mild pressure in the right upper quadrant of his abdomen
- MRI abdomen with and without IV contrast today: 4.8 cm unilocular cystic lesion in the head of the pancreas containing trace layering proteinaceous material. No suspicious enhancement. Upstream intrahepatic and extrahepatic bile duct dilatation.
Limited visualization of the mid to distal common bile duct, likely secondary to extrinsic mass effect from the cystic mass. The differential again includes a pancreatic pseudocyst or mucinous neoplasm. A choledochal cyst would be an alternative
consideration.
- Patient scheduled for EUS plus or minus ERCP with biopsy/aspiration of lesion today
- NPO
#PAC
-continue metoprolol 25mg PO
#Hypertension
-Continue Benazepril
-Monitor Vitals
#BPH
-Continue tamsulosin
#Lumbar radiculopathy secondary to intervertebral disc herniation
-Continue Gabapentin
DVT ppx: Lovenox
Full Code
Anticipated Discharge: 24 - 48 hours
Subjective/Interval History
-
Date of Service: January 19, 2025
He is sitting on his chair. Today he is going to have ERCP since midnight NPO. Denies urine color change, bm are normal, no bm color change.
Objective Data
-
Labs:
Laboratory Results
01/19/25
06:30
WBC 3.5 L
Hgb 12.2 L
Hct 34.3 L
Plt Count 222
Sodium Pending
Potassium Pending
Chloride Pending
Carbon Dioxide Pending
BUN Pending
Creatinine Pending
Glucose Pending
Calcium Pending
Total Bilirubin Pending
AST Pending
ALT Pending
Alkaline Phosphatase Pending
Vital Signs:
Vital Signs
Temp Pulse Resp BP Pulse Ox
97.9 F 65 16 128/73 99
01/18/25 23:21 01/18/25 23:21 01/18/25 23:21 01/18/25 23:21 01/18/25 23:21
I&O
01/18/25 01/19/25 01/20/25
06:59 06:59 06:59
Intake Total 1560 / 1560 2319 / 2319
Balance 1560 / 1560 2319 / 2319
Review of Systems
-
History Source: Patient
Constitutional: Reports No Symptoms
EENT: Reports No Symptoms Reported
Respiratory: Reports No Symptoms
Cardiac: Reports No Symptoms
Abdomen/GI: Reports No Symptoms
Genitourinary: Reports No Symptoms
Musculoskeletal: Reports No Symptoms
Skin: Reports No Symptoms
Neuro: Reports No Symptoms
Endocrine: Reports No Symptoms
Hematologic / Lymphatic: Reports No Symptoms
Allergy / Immunology: Reports No Symptoms
Physical Exam
-
General: Well Developed, Well Nourished, No Apparent Distress and Comfortable
HEENT: Normocephalic, Atraumatic and Other (Mild jaundice of the sclera)
Respiratory: Clear to Auscultation and Non Labored Respirations
Cardiac: Regular Rhythm and S1/S2
GI: Soft, Nontender and Nondistended
Musculoskeletal: No Clubbing, No Cyanosis and No Edema
Skin: Warm and Dry
Neuro: Awake, Alert, Oriented and AO x 3
Psych: Calm
[2025-01-19 07:35] VITALS: BP 134/81
[2025-01-19 07:48] LABS: ALT (SGPT) 345 U/L (0-50); AST (SGOT) 165 U/L (17-59); Albumin 3.7 g/dl (3.5-5.0); Alkaline Phosphatase 174 U/L (38-126); Blood Urea Nitrogen 15 mg/dl (9-20); Calcium 9.2 mg/dl (8.4-10.2); Carbon Dioxide 26 mmol/L (22-30); Chloride 105 mmol/L (98-107); Estimated Creatinine Clearance 93 ml/min; Glucose 113 mg/dl (70-99); Potassium 4.5 mmol/L (3.5-5.1); Sodium 135 mmol/L (135-145); Total Protein 6.5 g/dl (6.3-8.2); eGFR > 60.00
[2025-01-19] MEDS: TOPROL XL 25 MG PO (08:15)
[2025-01-19] MEDS: VITAMIN D3 (cholecalciferol) 25 MCG PO (08:16)
[2025-01-19] MEDS: ZESTRIL 10 MG PO (08:16)
--- NOTE | 2025-01-19 09:21 | CM ---
Chart reviewed. For EUS/ERCP w/ biopsy today
CM will cont to follow for d/c needs
[2025-01-19 15:45] VITALS: BP 117/64; BP 134/81
[2025-01-19 16:00] VITALS: BP 113/59
[2025-01-19 16:15] VITALS: BP 101/58
[2025-01-19 16:43] VITALS: BP 114/61
[2025-01-19] MEDS: LOVENOX 40 MG SC (17:19)
[2025-01-19] MEDS: ZANAFLEX 2 MG PO (21:51)
[2025-01-19] MEDS: NEURONTIN 100 MG PO (21:51)
[2025-01-19] MEDS: FLOMAX 0.4 MG PO (21:52)
[2025-01-19] MEDS: SINGULAIR 10 MG PO (21:52)
[2025-01-19] MEDS: METAMUCIL, KONSYL 1 PACKET PO (21:52)
[2025-01-19 23:09] VITALS: BP 124/60
[2025-01-20 06:55] LABS: Hematocrit 38.3 % (39.0-52.0); Hemoglobin 13.1 g/dL (13.0-18.0); Mean Corp Hgb Conc. 34.2 g/dL (33.0-37.0); Mean Corpuscular Volume 94.1 fL (80.0-94.0); Platelet Count 287 10^3/uL (130-400); Red Cell Dist. Width 13.1 % (11.5-14.5)
--- NOTE | 2025-01-20 07:19 | W.PN.HOSP.TC ---
Addendum entered and electronically signed by Domenic Rojo MD 01/21/25 17:50:
agree with resident note.
Original Note:
Today's Communication/Plan
-
Consult GI regarding elevated LF enzymes
Possible discharge?
Assessment / Plan
Assessment / Plan
Assessment:
65-year-old male with a past medical history of aortic root dilatation, PACs/PVCs, primary hypertension, dyslipidemia, lumbar radiculopathy presented to the ED due to abnormal outpatient lab work showing increased bilirubin levels as well as
elevated transaminases. He was told by his primary to come to the ED for further management. He has been having some dark urine and katelynn colored stools for the past several days however the urine has returned back to normal color. In the ED he
denied any abdominal pain, recent weight loss, alcohol tobacco use. CT abdomen pelvis showed unilocular cystic lesion of the pancreatic head measuring 4.8 cm causing CBD dilation. Patient was admitted to the hospital for further management with
MRI, GI upper endoscopic US and ERCP.
Plan:
# Pancreatic head mass with biliary obstruction and jaundice
CT with 4.8 cm mass at pancreatic head with CBD compression
Jaundice was present
GI consulted, input appreciated
Continues to have elevated bilirubin, elevated transaminases. Remains asymptomatic however with some mild pressure in the right upper quadrant of his abdomen
MRI abdomen with and without IV contrast today: 4.8 cm unilocular cystic lesion in the head of the pancreas containing trace layering proteinaceous material. No suspicious enhancement. Upstream intrahepatic and extrahepatic bile duct dilatation.
Limited visualization of the mid to distal common bile duct, likely secondary to extrinsic mass effect from the cystic mass. The differential again includes a pancreatic pseudocyst or mucinous neoplasm. A choledochal cyst would be an alternative
consideration.
01/19 Pt had GI upper Endoscopic US:
---A cystic lesion was seen in the pancreatic head.
---Fine needle aspiration for fluid performed.
--->Tumor markers and cytology results pending
--->Continue Protonic 40mg PO QD
--->Return to 's office in 6 weeks
01/19 ERCP:
---A single moderate biliary stricture was found in the lower third of the main bile duct.
---The common bile duct, common hepatic duct, left main hepatic duct and right main hepatic duct were moderately dilated.
---A biliary sphincterotomy was performed.
---One plastic stent was placed into the left hepatic duct
Low residue diet
Liver function enzymes elevated- consult GI regarding next step
#PAC
-continue metoprolol 25mg PO
#Hypertension
-Continue Benazepril
-Monitor Vitals
#BPH
-Continue tamsulosin
#Lumbar radiculopathy secondary to intervertebral disc herniation
-Continue Gabapentin
DVT ppx: Lovenox
Full Code
Anticipated Discharge: 24 - 48 hours
Subjective/Interval History
-
Date of Service: January 20, 2025
Patient is sitting on the chair. He is talkative and looks comfortable. He had ERCP, Endo-US yesterday. Denies pain, nausea, vomiting. No abnormal change in urine or stool color.
Objective Data
-
Labs:
Laboratory Results
01/20/25
06:18
WBC 5.2
Hgb 13.1
Hct 38.3 L
Plt Count 287 D
Sodium Pending
Potassium Pending
Chloride Pending
Carbon Dioxide Pending
BUN Pending
Creatinine Pending
Glucose Pending
Calcium Pending
Vital Signs:
Vital Signs
Temp Pulse Resp BP Pulse Ox
98.0 F 75 14 124/60 99
01/19/25 23:09 01/19/25 23:09 01/19/25 23:09 01/19/25 23:09 01/19/25 23:09
I&O
01/19/25 01/20/25 01/21/25
06:59 06:59 06:59
Intake Total 2319 / 0 1060 / 1060
Balance 2319 / 2319 1060 / 1060
Review of Systems
-
History Source: Patient
Constitutional: Reports No Symptoms
EENT: Reports No Symptoms Reported
Respiratory: Reports No Symptoms
Cardiac: Reports No Symptoms
Abdomen/GI: Reports No Symptoms
Genitourinary: Reports No Symptoms
Musculoskeletal: Reports No Symptoms
Skin: Reports No Symptoms
Neuro: Reports No Symptoms
Endocrine: Reports No Symptoms
Hematologic / Lymphatic: Reports No Symptoms
Allergy / Immunology: Reports No Symptoms
Physical Exam
-
General: Well Developed, Well Nourished, No Apparent Distress and Comfortable
HEENT: Normocephalic, Atraumatic and Other (Mild jaundice of the sclera)
Respiratory: Clear to Auscultation and Non Labored Respirations
Cardiac: Regular Rhythm and S1/S2
GI: Soft, Nontender and Nondistended
Musculoskeletal: No Clubbing, No Cyanosis and No Edema
Skin: Warm
Neuro: Awake, Alert, Oriented and AO x 3
Psych: Calm
[2025-01-20 07:32] LABS: Blood Urea Nitrogen 14 mg/dl (9-20); Calcium 10.0 mg/dl (8.4-10.2); Carbon Dioxide 23 mmol/L (22-30); Chloride 102 mmol/L (98-107); Estimated Creatinine Clearance 106 ml/min; Glucose 111 mg/dl (70-99); Potassium 4.6 mmol/L (3.5-5.1); Sodium 135 mmol/L (135-145); eGFR > 60.00
[2025-01-20 07:56] LABS: ALT (SGPT) 452 U/L (0-50); AST (SGOT) 239 U/L (17-59); Albumin 4.7 g/dl (3.5-5.0); Alkaline Phosphatase 181 U/L (38-126); Total Protein 7.7 g/dl (6.3-8.2)
[2025-01-20 08:12] VITALS: BP 109/65
[2025-01-20] MEDS: TOPROL XL 25 MG PO (08:15)
[2025-01-20] MEDS: VITAMIN D3 (cholecalciferol) 25 MCG PO (08:15)
[2025-01-20] MEDS: ZESTRIL 10 MG PO (08:15)
--- NOTE | 2025-01-20 12:53 | W.PN.GI.CBS2 ---
Addendum entered and electronically signed by Frederic Herrera MD 01/20/25 13:41:
Patient seen and examined, agree with nurse practitioner note. Patient feeling well, no abdominal pain, nausea or vomiting post procedures, tolerated diet without difficulty. His exam is benign and has no significant tenderness. His ALT and AST
are mildly more elevated the bilirubin is improved, and he notices screw down urine, now status post CBD stent and FNA of significant pancreatic cyst without other alarm features.
He is okay to DC from a GI standpoint, will repeat labs later this week and follow-up with Dr. Handy in the office. He knows to call with any significant symptoms or worsening jaundice.
We will sign off for now, please call back with any further questions.
Original Note:
Today's Communication / Plan
-
s/p EUS/ ERCP with Dr. Handy as noted
still some minimal LFT elevation today, no fever and feels well and tolerating low residue diet from this am
reviewed procedure and seen by Dr. Herrera -- ok for discharge today
return for increased pain, fever, jaundice or problems
slip given for repeat LFT's on
cont PPI daily til follow up with Dr. Handy with grade B esophagitis on EGD
Assessment / Plan
-
Darien is a 65 year old male with past medical history of essential hypertension, BPH, lumbar radiculopathy, PVCs who presents with 2 weeks of dark urine, pale stools, bilirubin/transaminitis on recent outpatient labs. He reports that he had a
history of elevated LFTs back in March of 2024 after a COVID booster, but it resolved on repeat labs. His physician was watching the LFTs and repeated them at physical to follow up from prior elevation and they were still wnl. However, within the
last two weeks he reports noticing dark urine, pale stools, and a slight increase in fatigue. He has not noticed any fevers, chills, nausea, vomiting, abdominal pain. He does report a sensation of 'fullness' in the RUQ. He has had weight loss of
about 50lbs in the past 5-6 years which was intentional, and had about 5lb weight loss in the past two weeks. He reports a comparative decrease in appetite, but no discomfort or abd pain associated with eating. He has no family history of pancreatic
cancer, no history of pancreatitis, quit drinking alcohol 32 years ago and has never smoked or used elicit substances. He does report growing up in [facility] which reportedly has a higher than national average of cancer due to industrial
pollutants. He has never had an EGD, but reports having a colonoscopy in the past.
01/17/25 MR Abdomen W/o & W Contrast
4.8 cm unilocular cystic lesion in the head of the pancreas containing trace layering proteinaceous material. No suspicious enhancement. Upstream intrahepatic and extrahepatic bile duct dilatation. Limited visualization of the mid to distal common
bile duct, likely secondary to extrinsic mass effect from the cystic mass. The differential again includes a pancreatic pseudocyst or mucinous neoplasm. A choledochal cyst would be an alternative consideration.
EGD/EUS: - LA Grade B esophagitis.
- No gross lesions in the entire stomach.
- Normal duodenal bulb, first portion of the duodenum and second
portion of the duodenum.
- A cystic lesion was seen in the pancreatic head. Fine needle
aspiration for fluid performed.
- Main pancreatic duct (MPD) diameter was measured.
Endosonographically, the MPD had a normal appearance.
- There was dilation in the common bile duct which measured up to
15 mm.
- Hyperechoic material consistent with sludge was visualized
endosonographically in the common bile duct and in the gallbladder
body.
- One enlarged lymph node was visualized in the trey hepatis
region.
- There was no sign of significant pathology in the ampulla.
- There was no evidence of significant pathology in the left lobe
of the liver.
ERCP:
- The contractor general building film was normal.
- The esophagus was successfully intubated under direct vision
without detailed examination of the pharynx, larynx, and associated
structures.
- The major papilla was normal.
- The bile duct was deeply cannulated with the short-nosed traction
sphincterotome. Contrast was injected. I personally interpreted the
bile duct images. Contrast extended to the hepatic ducts. Ductal
flow of contrast was adequate. Image quality was adequate. The
common bile duct, common hepatic duct, left main hepatic duct and
right main hepatic duct were moderately dilated. The largest
diameter was 15 mm. The lower third of the main bile duct contained
a single moderate stenosis 30 mm in length.
- A 0.035 inch x 260 cm straight Dreamwire passed successfully into
the left intrahepatic branches.
- A 3 mm biliary sphincterotomy was made with a monofilament short
nose sphincterotome using ERBE electrocautery. There was no
post-sphincterotomy bleeding.
- One 10 Fr by 7 cm transpapillary plastic stent with a full
external pigtail and a full internal pigtail was placed 7 cm into the
left hepatic duct. Bile and sludge flowed through the stent. The
stent was in good position.
#4.8cm pancreatic mass on CT imaging s/p EUS/ERCp with stent
#Painless Jaundice
#esophagitis
PLAN:
s/p EUS/ ERCP with Dr. Handy as noted
still some minimal LFT elevation today, no fever and feels well and tolerating low residue diet from this am
reviewed procedure and seen by Dr. Herrera -- ok for discharge today
return for increased pain, fever, jaundice or problems
slip given for repeat LFT's on
cont PPI daily til follow up with Dr. Handy with grade B esophagitis on EGD
Subjective
Subjective
Date of Service: January 20, 2025
Low residue diet
Objective
Data Reviewed
Laboratory Data:
Laboratory Results
01/20/25 06:18
01/20/25 07:34
Laboratory Results
PT 13.5 Sec (11.4-14.6) 01/16/25 13:01
INR 1.00 01/16/25 13:01
Total Bilirubin Cancelled 01/20/25 07:34
AST Cancelled 01/20/25 07:34
ALT Cancelled 01/20/25 07:34
Alkaline Phosphatase Cancelled 01/20/25 07:34
Lipase 115 U/L (23-300) 01/16/25 13:01
Vital Signs and I&O:
Vital Signs
Temp Pulse Resp BP Pulse Ox
98 F 74 16 109/65 100
01/20/25 08:12 01/20/25 08:12 01/20/25 08:12 01/20/25 08:12 01/20/25 08:12
I&O
01/19/25 01/20/25 01/21/25
06:59 06:59 06:59
Intake Total 2320 / 2320 1060 / 1060 1200 / 1200
Balance 2320 / 2320 1060 / 1060 1200 / 1200
Physical Exam
Physical Exam
HEENT: Other (minimal jaundice )
Cardiology: Normal Sinus Rhythm
Pulmonary: Clear
GI: Soft, Non Distended and Non Tender
Extremities: No Edema
Neuro: Non Focal
[2025-01-20] MEDS: PROTONIX 40 MG PO (13:55)
--- NOTE | 2025-01-20 14:25 | W.DCSUMMARY ---
Discharge Summary
Discharge Data
Date of Admission: 01/16/25
Date of Discharge: 01/20/25
-
Pending Results: Yes
Additional Pending Results:
Tumor markers and cytology results pending
Hospital Course
Discharging Physician : Dr. Wu Mcmahon, Dr. Domenic Rojo
Disposition : Home
Primary care physician : Nick Frances
Principal Discharge diagnosis : Pancreatic head mass with biliary obstruction
Chronic Discharge diagnosis :
PAC
Hypertension
BPH
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
Hospital Course :
65-year-old male presented to the ED on 01/16/2025 due to abnormal outpatient lab work showing increased bilirubin levels as well as elevated transaminases. In the ED, CT abdomen pelvis showed unilocular cystic lesion of the pancreatic head
measuring 4.8 cm causing CBD dilation. Patient was admitted to the hospital for further management with MRI, GI upper endoscopic US and ERCP. On Sunday he had MRI imaging. On Sunday he had ERCP, Endo US. Fine needle aspiration for fluid was
performed on a cyst and one plastic stent was placed into the left hepatic duct. He still has mildly elevated LFT. He has a script for repeat LFT on .
Repeat LFT labs on
Tumor markers and cytology results pending
Continue taking 40mg Pantoprazole PO daily for Grade B esophagitis on endoscopy until seen by
Follow up with 's office in 6 weeks.
Follow up with PCP within a week
Important imaging findings :
MRI abdomen with and without IV contrast:
-4.8 cm unilocular cystic lesion in the head of the pancreas containing trace layering proteinaceous material. No suspicious enhancement.
-Upstream intrahepatic and extrahepatic bile duct dilatation. Limited visualization of the mid to distal common bile duct, likely secondary to extrinsic mass effect from the cystic mass.
-The differential again includes a pancreatic pseudocyst or mucinous neoplasm. A choledochal cyst would be an alternative consideration.
Procedure findings :
GI upper Endoscopic US:
-A cystic lesion was seen in the pancreatic head
-Fine needle aspiration for fluid performed
ERCP
-A single moderate biliary stricture was found in the lower third of the main bile duct.
-The common bile duct, common hepatic duct, left main hepatic duct and right main hepatic duct were moderately dilated.
-A biliary sphincterotomy was performed.
-One plastic stent was placed into the left hepatic duct
Discharge Plan
-
Patient Disposition: Home (Routine Discharge)
Discharge Diagnosis/Procedures: Pancreatic head mass with biliary obstruction
Condition: Good
Diet: Regular
Additional Diets: low fat diet
Activity: No restrictions
Driving Restrictions: As prior to admission
Bathing Restrictions: None
Blood Work: obtain repeat LFT's on
Others Tests: Tumor markers and cytology results pending
Referrals:
Andrea Handy MD [Active, Gastroenterology]
Referral Note: call to arrange 6 week follow up in GI office
Nick Frances MD [Family Provider, Internal Medicine]
Additional Discharge Medication Instructions: Continue taking Protonic 40mg orally every day until following up with (with grade B esophagitis on Endoscopy)
Follow up with Dr. Handy's office in 6 weeks
Follow up with PCP within a week
Prescriptions:
New
pantoprazole 40 mg tablet,delayed release (DR/EC)
40 mg PO DAILY Qty: 30 0RF
Continued
metoprolol succinate [Toprol XL] 25 mg Tablet Extended Release 24 Hr
25 mg PO DAILY
tizanidine 2 mg Tablet
2 mg PO HS
echinacea 400 mg Capsule
400 mg PO DAILY
psyllium Packet
1 packet PO DAILY
zinc sulfate 25 mg zinc (110 mg) Tablet
25 mg PO DAILY
tamsulosin [Flomax] 0.4 mg Capsule
0.4 mg PO HS
ascorbic acid (vitamin C) [Vitamin C] 250 mg Tablet
250 mg PO DAILY
montelukast [Singulair] 10 mg Tablet
10 mg PO HS
gabapentin 100 mg Capsule
100 mg PO HS
benazepril 10 mg Tablet
10 mg PO DAILY
red yeast rice 600 mg Capsule
600 mg PO DAILY
cholecalciferol (vitamin D3) [Vitamin D3] 25 mcg (1,000 unit) Tablet
25 mcg PO DAILY
magnesium oxide 500 mg Capsule
500 mg PO DAILY
alpha lipoic acid 200 mg Capsule
200 mg PO DAILY
coQ10 (ubiquinol) 100 mg Capsule
100 mg PO DAILY
turmeric 400 mg Capsule
500 mg PO DAILY
Discharge Orders:
Discharge Patient (As Directed); Ordered 01/20/25
Ordered By: Wu Mcmahon
Discharge Date and Time
Print Language: LAO
--- NOTE | 2025-01-20 14:28 | CM ---
Patient will d/c today. No CM needs at this time
Spouse will transport
Plan: Home, no needs
--- NOTE | 2025-01-20 14:45 | PN.CDI ---
CDI
- -
CDI:
Physician Documentation Request
Admit Date: 01/16/25 18:39
Dear Doctor Lisandro,
ED record states patient came to ED for evaluation of abnormal blood work. He noted several days of dark urine and katelynn colored stool. ED exam 'skin: Good color, no pallor or jaundice, no rashes'
H&P states 'no jaundice '
H&P also states 'He has RUQ fullness and jaundice'
01/17 progress note states 'Says (pt) that he does not know why everyone keeps saying he has jaundice, he does not notice any change in color.'
ERCP indication states 'admitted with obstructive jaundice'
In an attempt to clarify potentially conflicting documentation, please clarify:
Jaundice is/was present
Jaundice is not/was not present.
Other
Use of terms such as suspected, likely, concern for, or probable (associated with a specific diagnosis that is being evaluated, monitored, or treated as if it exists) are acceptable and can be coded in the inpatient setting, when documented at the
time of discharge.
Thank you,
Richelle Kan RN, BSN
CDI Specialist
tiger text
Please use your independent medical judgment in providing your response.
[2025-01-20 15:48] VITALS: BP 116/66
== END 2025-01-20 17:41 | disposition home or self-care (01) | DRG 438 ==
LOC: 4 WEST ACU 18:39
PROVIDERS: Internal Medicine Gastroenterology; Physician Assistant; Radiology Diagnostic Radiology; ADMITTING PHYSICIAN Internal Medicine; ATTENDING PHYSICIAN Hospitalist; CONSULT PHYSICIAN Internal Medicine; EMERGENCY PHYSICIAN Emergency Medicine; FAMILY PHYSICIAN Internal Medicine
PROC: BF101ZZ Fluoroscopy of Bile Ducts using Low Osmolar Contrast (ICD-10-PCS; 2025-01-19)
PROC: 0F768DZ Dilation of Left Hepatic Duct with Intraluminal Device, Via Natural or Artificial Opening Endoscopic (ICD-10-PCS; 2025-01-19)
PROC: 0F9G8ZX Drainage of Pancreas, Via Natural or Artificial Opening Endoscopic, Diagnostic (ICD-10-PCS; 2025-01-19)
DX: K86.2 Cyst of pancreas (principal); K83.1 Obstruction of bile duct; R17 Unspecified jaundice; D13.6 Benign neoplasm of pancreas; I10 Essential (primary) hypertension; N40.0 Benign prostatic hyperplasia without lower urinary tract symptoms; R74.8 Abnormal levels of other serum enzymes; R59.0 Localized enlarged lymph nodes; I77.810 Thoracic aortic ectasia; E78.00 Pure hypercholesterolemia, unspecified; K20.90 Esophagitis, unspecified without bleeding; I49.3 Ventricular premature depolarization; M51.16 Intervertebral disc disorders with radiculopathy, lumbar region; Z88.6 Allergy status to analgesic agent; Z88.5 Allergy status to narcotic agent
CPT/HCPCS: 74177; 74183; 74330; 76000; 80053; 82248; 82607; 82728; 82746; 83540; 83550; 83690; 85025; 85027; 85610; 88173; 88305; 99285; A9575; C1769; C2617; Q9967